=== PATIENT | female | born 1950 | race African-American/Black ===

== ENCOUNTER 2016-10-23 13:47 | Emergency (ER) | payer OTHER ==
[~2016-10-23] VITALS: Ht 162.6 cm; Wt 89.4 kg
--- NOTE | 2016-10-23 14:06 | NUR ---
[id number], CAME TO ER C/O PAIN AND SWELLING TO LIPS S/P GLF THIS MORNING DENIES LOC, NECK OR BACK PAIN. -KO. RESP IS EVEN AND UNLABORED WITH NAD NOTED. SKIN IS WARM AND DRY. DR OBANDO AT BS FOR EVAL.
[2016-10-23 15:02] VITALS: BP 142/88
== END 2016-10-23 15:02 | disposition home or self-care (01) ==
LOC: ER 13:48
DX: S00.511A Abrasion of lip, initial encounter (principal); I10 Essential (primary) hypertension; Z95.0 Presence of cardiac pacemaker; W01.0XXA Fall on same level from slipping, tripping and stumbling without subsequent striking against object, initial encounter; Y93.89 Activity, other specified; Y92.89 Other specified places as the place of occurrence of the external cause; Y99.9 Unspecified external cause status
CPT/HCPCS: 99281; A4606; Z7502; Z7610

== ENCOUNTER 2019-05-16 03:33 | Emergency (ER) | payer OTHER ==
[~2019-05-16] VITALS: Ht 162.6 cm; Wt 84.4 kg
--- NOTE | 2019-05-16 03:35 | NUR ---
PT PRESENTED TO THE ER WITH A C/O SOB. PT HAS BILATERAL WHEEZES. PT STATED THAT SHE HAD HER PACEMAKER BATTERIES REPLACED RECENTLY.
[2019-05-16] MEDS: ALBUTEROL FS 2.5 MG/0.5 ML VIAL.NEB NEB ONE ×2 (03:53→04:50)
--- NOTE | 2019-05-16 03:53 | NUR ---
BREATHING TX IN PROGRESS AT THE BEDSIDE.
[2019-05-16] MEDS ORDERED: ALBUTEROL FS 2.5 MG/0.5 ML VIAL.NEB ONE ×2 (03:55→04:52)
[2019-05-16] MEDS ORDERED: FUROSEMIDE 40 MG/4 ML VIAL IV ONE (04:00)
--- NOTE | 2019-05-16 04:24 | NUR ---
CXR DONE AT THE BEDSIDE.
--- NOTE | 2019-05-16 04:40 | NUR ---
DR EDWARDS IS AT THE BEDSIDE RE-EVALUATING THE PT.
--- NOTE | 2019-05-16 04:43 | NUR ---
RT CALLED FOR ANOTHER BREATHING TX.
[2019-05-16 05:19] VITALS: BP 153/82
--- NOTE | 2019-05-16 05:19 | NUR ---
Patient discharged to home in stable condition. Written and verbal after care instructions given. Patient verbalizes understanding of instruction AND RX. PT AMBULATED OUT WITH A STEADY GAIT. VSS. NAD NOTED. RESP WERE EVEN AND UNLABORED.
== END 2019-05-16 05:21 | disposition home or self-care (01) ==
LOC: ER 03:36
DX: J98.01 Acute bronchospasm (principal); Z95.0 Presence of cardiac pacemaker; Z98.890 Other specified postprocedural states
CPT/HCPCS: 71045-TC

== ENCOUNTER 2024-03-02 13:32 | Emergency (ER) | payer OTHER ==
[~2024-03-02] VITALS: Ht 160 cm; Wt 86.6 kg
[~2024-03-02 13:32] MED LIST: AMOX-430 PO; HYDR-3980 PO; IBUP-1955 PO
[2024-03-02 14:26] LABS: BASOPHILS % (AUTO) 0.4 % (0.0-2.0); EOSINOPHILS # (AUTO) 0.1 K/uL (0.0-0.7); EOSINOPHILS % (AUTO) 1.5 % (0.0-6.0); HEMATOCRIT 44 % (33-45); HEMOGLOBIN 14.1 g/dL (11.5-14.8); LYMPHOCYTES # (AUTO) 2.1 K/uL (0.8-4.8); LYMPHOCYTES % (AUTO) 36.7 % (20.0-44.0); MEAN CORPUSCULAR HEMOGLOBIN 26 PG (26.0-33.0); MEAN CORPUSCULAR HGB CONC 32 g/dl (31.0-36.0); MEAN CORPUSCULAR VOLUME 83 fL (82-100); MONOCYTES # (AUTO) 0.4 K/uL (0.1-1.30); MONOCYTES % (AUTO) 7.4 % (2.0-12.0); PLATELET COUNT (AUTO) 255 K/uL (150-450); RED BLOOD CELL COUNT(AUTO) 5.34 MIL/uL (4.0-5.2); RED CELL DISTRIBUTION WIDTH 14.3 % (11.5-15.0); WHITE BLOOD COUNT (AUTO) 5.6 K/uL (4.3-11.0)
[2024-03-02 14:35] LABS: CALCIUM, SERUM 9.1 mg/dL (8.5-10.1); CARBON DIOXIDE 26 mmol/L (21-32); CHLORIDE 104 mmol/L (98-107); CREATININE 0.9 mg/dL (0.6-1.3); GLUCOSE 106 mg/dL (74-106); POTASSIUM 3.6 mmol/L (3.5-5.1); SODIUM SERUM 140 mmol/L (136-145); UREA NITROGEN, BLOOD 18 mg/dL (7-18)
[2024-03-02 14:41] LABS: ALANINE AMINOTRANSFERASE 22 U/L (12-78); ALBUMIN 3.9 g/dL (3.4-5.0); ALKALINE PHOSPHATASE 99 U/L (46-116); ASPARTATE AMINOTRANSFERASE 17 U/L (15-37); BILIRUBIN,DIRECT 0.2 mg/dL (0.0-0.2); BILIRUBIN,TOTAL 0.5 mg/dL (0.2-1.0); LIPASE 28 U/L (16-77); TOTAL PROTEIN, SERUM 7.9 g/dL (6.4-8.2)
[2024-03-02] MEDS ORDERED: HYDR-4303 PO (16:14)
[2024-03-02 16:39] LABS: APPEARANCE,URINE Slightly Cloudy (CLEAR); BILIRUBIN,URINE Negative (NEGATIVE); BLOOD, URINE Small Ery/uL (NEGATIVE); COLOR,URINE LIGHT YELLOW (YELLOW); KETONES,URINE Negative (NEGATIVE); LEUKOCYTE ESTERASE ,URINE Negative (NEGATIVE); NITRITE, URINE Negative (NEGATIVE); PROTEIN,URINE 30 mg/dl (NEGATIVE); UGLUCOSE Negative (NEGATIVE)
[2024-03-02 16:52] LABS: ADD URINE CULTURE YES; BACTERIA,URINE Moderate /HPF (None Seen); SQUAMOUS EPITHELIAL CELL,UR Moderate /HPF (None Seen)
[2024-03-02 16:58] VITALS: BP 132/78; TEMP 98.5; O2SAT 100
== END 2024-03-02 16:35 | disposition home or self-care (01) ==
LOC: ER 13:52
DX: K57.32 Diverticulitis of large intestine without perforation or abscess without bleeding (principal); D25.9 Leiomyoma of uterus, unspecified; G89.29 Other chronic pain; R10.31 Right lower quadrant pain; E78.5 Hyperlipidemia, unspecified; I10 Essential (primary) hypertension; K21.9 Gastro-esophageal reflux disease without esophagitis; Z78.0 Asymptomatic menopausal state; Z87.19 Personal history of other diseases of the digestive system; Z87.59 Personal history of other complications of pregnancy, childbirth and the puerperium; Z95.0 Presence of cardiac pacemaker
CPT/HCPCS: 36415; 76856-TC; 80048-TC; 80076-TC; 81001; 83690-TC; 85025-TC; 87086-TC